=== PATIENT | female | born 1970 | race Caucasian/White ===

== ENCOUNTER 2017-06-01 17:03 | Emergency (ER) | payer OTHER | END 2017-06-01 18:27 | disposition home or self-care (01) | LOC: D.ER 17:03 | DX: F41.0 Panic disorder [episodic paroxysmal anxiety] (principal); F17.200 Nicotine dependence, unspecified, uncomplicated ==

== ENCOUNTER 2017-06-25 19:38 | Emergency (ER) | payer OTHER | END 2017-06-25 20:37 | disposition home or self-care (01) | LOC: D.ER 19:38 | DX: F41.0 Panic disorder [episodic paroxysmal anxiety] (principal); K21.9 Gastro-esophageal reflux disease without esophagitis; F17.200 Nicotine dependence, unspecified, uncomplicated; F98.8 Other specified behavioral and emotional disorders with onset usually occurring in childhood and adolescence ==

== ENCOUNTER 2019-02-22 20:23 | Emergency (ER) | payer OTHER ==
[~2019-02-22] VITALS: Ht 165.1 cm; Wt 77.3 kg
[2019-02-22 20:31] VITALS: Ht 165.1 cm; Wt 77.3 kg
[2019-02-22] MEDS ORDERED: ZPAK PO (22:08)
[2019-02-22] MEDS ORDERED: PREDNISONE20 MG PO (22:08)
[2019-02-22 22:29] VITALS: BP 141/75
== END 2019-02-22 22:31 | disposition home or self-care (01) ==
LOC: D.ER 20:23
DX: H66.93 Otitis media, unspecified, bilateral (principal); J40 Bronchitis, not specified as acute or chronic